=== PATIENT | female | born 1990 | race African-American/Black ===

== ENCOUNTER → 2024-11-25 10:54 | Outpatient (REF) | payer OTHER, SELFPAY ==
[2024-11-27 14:01] LABS: Mumps Virus IgG Positive; Varicella Zoster IgG (VZV) Positive
== END ==
LOC: REG 10:54
PROVIDERS: ATTENDING PHYSICIAN Nurse Practitioner Family
DX: Z13.9 Encounter for screening, unspecified (principal); Z23 Encounter for immunization
CPT/HCPCS: 36415; 71046; 86706; 86735; 86762; 86765; 86787